=== PATIENT | male | born 1950 | race Caucasian/White ===

== ENCOUNTER 2018-04-04 17:00 | Inpatient (IN) | payer MEDICARE ==
[~2018-04-04] VITALS: Ht 185.4 cm; Wt 68.0 kg
--- NOTE | ~2018-04-04 | RHP ---
PATIENT: TIM KOHLER MEDICAL RECORD: [id number] ACCOUNT: [id number] LOCATION:[facility]1114 : 46 ADMISSION DATE: 04/04/18 REHABILITATION HISTORY AND PHYSICAL EXAMINATION POST ADMISSION PHYSICIAN EXAMINATION DATE OF ADMISSION: 04/04/2018 ADMITTING DIAGNOSIS: Parkinson's disease. HISTORY OF PRESENT ILLNESS: The patient admitted to inpatient rehab for Parkinson's. This is a 67-year-old gentleman, who has had a couple of falls within the previous week prior to presenting via EMS to the ED. He was admitted for acute hospital on 04/09 with falls and weakness. He has got complaints of increased generalized pain during his hospital stay. He has got a past medical history of Parkinson's, ankylosing spondylitis, Alzheimer's, arthritis, diabetes and hypertension. He lives at home with his , moderately independent with his mobility and uses a rollator around the house. He is min assist with ADLs. states she assisted him mainly with his bathing. He is on Aricept and also Sinemet for his Parkinson's. He sees Dr. Downey a neurologist in [place]. He apparently was not able to tolerate some of the medications that have been tried on him in the past. The patient's states that he has had weight loss over the previous 6 months to years, not been eating well. Apparently, he has been having some problems with choking at times. He is currently eating regular food. His states that over the past 4 months he has been having urinary stress incontinence with difficulty getting to the bathroom quickly and having to wear or pull up briefs, also states that he has had a drastic decline since Tuesday after being admitted to the hospital that he has been having to been fed and was able to do that prior to this hospitalization. The patient states that he is unable to do much secondary to increased pain. states that the pain is something new that he has never had much of a problem with pain, has been taking Advil basically just for pain in the past. He is currently having increased pain, impaired mobility, weakness, debility, self-care deficit and frequent falls. These are all barriers to discharging home at this time. He is currently minimum assist to total assist with ADLs, max assist to total assist for mobility. He and his would like to hopefully get him back to his prior level of functioning before returning home. COMORBIDITIES: In this patient include Parkinson's, bilateral leg weakness, ankylosing spondylitis, frequent falls, pain, self-care deficit, debility, impaired mobility, diabetes, hypertension and arthritis. PAST MEDICAL HISTORY: Significant for hypertension, diabetes, arthritis, Alzheimer's dementia and Parkinson's. PAST SURGICAL HISTORY: Includes he has had an elbow bursa removed or olecranon bursitis, excision of a mass to his right knee and hip and tonsillectomy. ALLERGIES: PROPOXYPHENE, FROM [employer], CECLOR, NEURONTIN. CURRENT MEDICATIONS: Include ibuprofen 600 mg t.i.d. p.r.n., hydrochlorothiazide 25 mg daily, lisinopril 20 mg daily, metformin 500 mg b.i.d. with meals, glipizide 2.5 mg b.i.d. before every meal, MiraLax 17 g in 8 ounces of water daily, potassium 10 mEq daily, furosemide 20 mg daily, [place] 10/325 one tab every 4 to 6 hours p.r.n. HISTORY AND PHYSICAL [id number] TIM KOHLER HABITS: No alcohol or tobacco use. FAMILY HISTORY: Noncontributory. SOCIAL HISTORY: The patient hopes to return back home with his and get back to his prior level of functioning. REVIEW OF SYSTEMS: GENERAL: He does complain of some weakness and fatigue. HEENT: Denies cold, cough, or congestion. CARDIOVASCULAR: He denies chest pain. PHYSICAL EXAMINATION: VITAL SIGNS: Stable, afebrile. GENERAL: An elderly gentleman in no acute distress upon exam. HEENT: Normocephalic and atraumatic. Mucosa moist. NECK: Supple. No lymphadenopathy. LUNGS: Clear at this time. HEART: Regular rate and rhythm. ABDOMEN: Benign. EXTREMITIES: No clubbing. NEUROLOGIC: He is consistent with Parkinson's. He has some noted pill rolling tremor and also some noted rigidity. LABORATORY DATA: White count is 12.1, H&H of 14 and 41 and platelet count is noted to be 374. Sodium is 140, potassium 3.4, BUN and creatinine of 29 and 0.9, blood sugar is noted to be 117. ASSESSMENT: This is a 67-year-old gentleman admitted to the rehab with a working diagnosis of Parkinson's. The patient has potential to make improvement. We instituted the following multidisciplinary therapies include but not limited to physical, occupational, respiratory, speech, nutritional services, prosthetics and orthotics. Given his complex medical condition and risk for more complications rehabilitation services cannot be provided at a low level of care such as skilled nurse facility. PLAN: 1. Admit to [facility] for intensive inpatient therapy to include the following disciplines: A. Physical therapy to improve gait, all transfer skills and bed mobility to a modified independent level. B. Occupational therapy to a modified independent level. C. Case management to assist with discharge planning and placement options. D. Nutrition to assist with nutritional needs. E. Rehabilitation nursing to assist in monitoring the patient's underlying medical conditions and to assist with any type of bowel or bladder management. 2. The patient's current medication and medical care will be continued. 3. The patient will be placed on standard fall precautions. 4. The patient's estimated length of stay is approximately 7-10 days. 5. We will discuss the patient during care team staff meeting this week and will get speech therapy to see him for that part of this swallowing problems are secondary to the dopamine receptor in his esophagus, not functioning properly secondary to his Parkinson's, we are going to follow up on that. HISTORY AND PHYSICAL [id number] TIM KOHLER TRANSINT:[id number] Voice Confirmation ID: [id number] DOCUMENT ID: [id number] [facility]I notes whether there has been none or any medical/functional change since admission: - No change since pre-admission screen. MACI attests patient continues to be appropriate for IRF: - Continues to be appropriate. LEONARD YANEZ MD at [id number] CC: [id number] DICTATION DATE: 04/05/18 0852 GRADUATE TEACHING ASSOCIATE: 04/05/18 0932 ADM IN [facility] [address] [place] [address]
[2018-04-04] MEDS ORDERED: GLUCOTROL 5 MG T5 MG PO (18:12)
[2018-04-04] MEDS ORDERED: IBUPROFEN600 MG PO (18:14)
[2018-04-04] MEDS ORDERED: FUROSEMIDE20 MG PO (18:15)
[2018-04-04] MEDS ORDERED: NORCO 10-325 TA1 TAB PO ×2 (18:17→18:29)
[2018-04-04] MEDS ORDERED: GLUCOPHAGE500 MG PO (18:20)
[2018-04-04] MEDS ORDERED: K-DUR20 MEQ PO (18:21)
[2018-04-04] MEDS ORDERED: PRINIVIL20 MG PO (18:25)
[2018-04-04] MEDS ORDERED: HYDROCHLOROTHIA25 MG PO (18:25)
[2018-04-04 22:13] VITALS: BP 139/83; BMI 19.8
[2018-04-05 06:16] LABS: BASOPHILS 0.2 % (0-2); EOSINOPHILS 0.8 % (0-7); HEMATOCRIT 41.8 % (42.0-54.0); HEMOGLOBIN 14.2 g/dL (13.5-17.5); IMMATURE GRANULOCYTES 0.2 % (0-5); MCH 31.2 pg (26.0-34.0); MCV 91.9 fL (80.0-100.0); MEAN PLATELET VOLUME 10.1 fL (7.4-10.4); MONOCYTES 9.1 % (2-11); NEUTROPHILS 74.7 % (40-80); PLATELET COUNT 374 10x3/uL (130-400); RBC 4.55 10x6/uL (4.20-6.10); RDW 13.8 % (11.5-14.5); WBC 12.1 10x3/uL (4.8-10.8)
[2018-04-05 06:42] LABS: CALC OSMOLALITY 285 mosm/kg (275-300); CALCIUM 9.4 mg/dL (8.5-10.1); CARBON DIOXIDE 32.7 mmol/L (21.0-32.0); CHLORIDE - SERUM 100 mmol/L (98-107); CREATININE - SERUM 0.9 mg/dL (0.6-1.3); GLUCOSE 117 mg/dL (74-106); POTASSIUM - SERUM 3.4 mmol/L (3.5-5.1); SODIUM 140 mmol/L (136-145); UREA NITROGEN 29 mg/dL (7-18); eGFR NON AFRICAN AMERICAN 89 mL/min (90-120)
[2018-04-05 08:15] VITALS: BP 130/79
[2018-04-05 08:59] VITALS: Ht 185.4 cm; Wt 68.0 kg
[2018-04-05 14:02] VITALS: BP 85/66
[2018-04-05 19:00] VITALS: BP 133/78
[2018-04-06 08:06] VITALS: BP 126/70
[2018-04-06 19:09] VITALS: BP 131/72
[2018-04-07 07:26] LABS: BASOPHILS 0.2 % (0-2); EOSINOPHILS 1.6 % (0-7); HEMATOCRIT 42.1 % (42.0-54.0); HEMOGLOBIN 14.5 g/dL (13.5-17.5); IMMATURE GRANULOCYTES 0.5 % (0-5); LYMPHOCYTES 15.8 % (15-50); MCH 31.3 pg (26.0-34.0); MCHC 34.4 g/dL (31.0-37.0); MCV 90.7 fL (80.0-100.0); MEAN PLATELET VOLUME 9.8 fL (7.4-10.4); MONOCYTES 8.3 % (2-11); NEUTROPHILS 73.6 % (40-80); PLATELET COUNT 314 10x3/uL (130-400); RBC 4.64 10x6/uL (4.20-6.10); RDW 13.7 % (11.5-14.5)
[2018-04-07 07:41] LABS: CALC OSMOLALITY 283 mosm/kg (275-300); CALCIUM 9.2 mg/dL (8.5-10.1); CARBON DIOXIDE 30.9 mmol/L (21.0-32.0); CHLORIDE - SERUM 98 mmol/L (98-107); CREATININE - SERUM 0.7 mg/dL (0.6-1.3); GLUCOSE 93 mg/dL (74-106); SODIUM 139 mmol/L (136-145); UREA NITROGEN 28 mg/dL (7-18); eGFR NON AFRICAN AMERICAN > 90 mL/min (90-120)
[2018-04-07 08:19] VITALS: BP 128/75
[2018-04-07 19:00] VITALS: BP 118/72
[2018-04-08 08:22] VITALS: BP 145/71
[2018-04-08] MEDS ORDERED: LISINOPRIL10 MG PO (12:23)
[2018-04-08] MEDS ORDERED: K-DUR20 MEQ PO (12:24)
[2018-04-08] MEDS ORDERED: NORCO 10-325 TA1 TAB PO (12:25)
[2018-04-08 20:15] VITALS: BP 148/79
[2018-04-09 07:00] LABS: CALC OSMOLALITY 280 mosm/kg (275-300); CALCIUM 8.9 mg/dL (8.5-10.1); CARBON DIOXIDE 33.1 mmol/L (21.0-32.0); CHLORIDE - SERUM 99 mmol/L (98-107); CREATININE - SERUM 0.8 mg/dL (0.6-1.3); GLUCOSE 120 mg/dL (74-106); SODIUM 137 mmol/L (136-145); UREA NITROGEN 29 mg/dL (7-18); eGFR NON AFRICAN AMERICAN > 90 mL/min (90-120)
[2018-04-09 07:01] LABS: POTASSIUM - SERUM 2.7 mmol/L (3.5-5.1)
[2018-04-09 08:00] VITALS: BP 118/69
[2018-04-09 20:27] VITALS: BP 132/71
[2018-04-10 06:21] LABS: BASOPHILS 0.1 % (0-2); EOSINOPHILS 1.6 % (0-7); HEMATOCRIT 37.1 % (42.0-54.0); HEMOGLOBIN 12.5 g/dL (13.5-17.5); IMMATURE GRANULOCYTES 0.6 % (0-5); LYMPHOCYTES 15.7 % (15-50); MCH 30.6 pg (26.0-34.0); MCHC 33.7 g/dL (31.0-37.0); MCV 90.7 fL (80.0-100.0); MEAN PLATELET VOLUME 9.3 fL (7.4-10.4); MONOCYTES 10.6 % (2-11); NEUTROPHILS 71.4 % (40-80); PLATELET COUNT 319 10x3/uL (130-400); RBC 4.09 10x6/uL (4.20-6.10); RDW 13.6 % (11.5-14.5); WBC 10.2 10x3/uL (4.8-10.8)
[2018-04-10 06:39] LABS: CALC OSMOLALITY 279 mosm/kg (275-300); CALCIUM 8.6 mg/dL (8.5-10.1); CHLORIDE - SERUM 99 mmol/L (98-107); CREATININE - SERUM 0.7 mg/dL (0.6-1.3); GLUCOSE 129 mg/dL (74-106); POTASSIUM - SERUM 3.4 mmol/L (3.5-5.1); SODIUM 137 mmol/L (136-145); UREA NITROGEN 24 mg/dL (7-18); eGFR NON AFRICAN AMERICAN > 90 mL/min (90-120)
[2018-04-10 07:50] VITALS: BP 127/71
== END 2018-04-10 14:46 | DRG 57 ==
LOC: D.REHAB 17:00
PROVIDERS: Emergency Medicine
DX: G20 Parkinson's disease (principal); F02.80 Dementia in other diseases classified elsewhere, unspecified severity, without behavioral disturbance, psychotic disturbance, mood disturbance, and anxiety; R53.1 Weakness; M45.9 Ankylosing spondylitis of unspecified sites in spine; R53.81 Other malaise; E11.9 Type 2 diabetes mellitus without complications; I10 Essential (primary) hypertension; M19.90 Unspecified osteoarthritis, unspecified site; R52 Pain, unspecified